=== PATIENT | female | born 1985 | race Caucasian/White ===

== ENCOUNTER 2017-05-22 13:27 | Emergency (ER) | payer MEDICAID ==
[~2017-05-22] VITALS: Ht 154.9 cm; Wt 56.0 kg
[2017-05-22 13:29] VITALS: BP 119/74
== END 2017-05-22 14:00 | disposition home or self-care (01) ==
LOC: ER 13:27
DX: M79.5 Residual foreign body in soft tissue (principal)
CPT/HCPCS: 99283